=== PATIENT | female | born 1940 | race Caucasian/White ===

== ENCOUNTER 2017-04-27 19:45 | Inpatient (IN) ==
[2017-04-27 19:08] LABS: BASOPHILS % (AUTO) 0.2 % (0-1); EOSINOPHILS % (AUTO) 0.1 % (0-8); Hematocrit [HCT] 42.7 % (37.0-47.0); Hemoglobin [HGB] 14.6 g/dL (12.0-16.0); LYMPHOCYTES # (AUTO) 1.74 10*3/uL; MEAN CORPUSCULAR HEMOGLOBIN 32.4 PG (27-31); MEAN CORPUSCULAR HGB CONC 34.2 g/dL (33-37); MEAN CORPUSCULAR VOLUME 94.7 FL (81-99); MEAN PLATELET VOLUME 11.7 FL (7.4-12.2); MONOCYTES % (AUTO) 8.5 % (5-15); NEUTROPHILS # (AUTO) 20.92 10*3/UL; NEUTROPHILS % (AUTO) 83.7 % (50-80); RED BLOOD COUNT 4.51 10^6/uL (4.20-5.40)
[2017-04-27 19:09] LABS: BASOPHILS # (AUTO) 0.06 10*3/UL; EOSINOPHILS # (AUTO) 0.02 10*3/UL; MONOCYTES # (AUTO) 2.12 10*3/UL (0.3-0.8)
--- NOTE | 2017-04-27 19:13 | PDOC ---
GI Bleed/Rectal Complaint HPI - General Chief Complaint: Nausea / Vomiting / Diarrhea Stated Complaint: vomiting blood/bright red stools Date Seen by Provider: 04/27/17 Time Seen by Provider: 16:10 - History of Present Illness Initial Comments: Patient is a very nice 76-year-old woman who presents to the emergency department via EMS with complaint of copious amounts of rectal bleeding. She apparently has fairly dark appearing rectal blood she also has had a couple episodes of emesis earlier today. She is anticoagulated with Coumadin secondary to chronic atrial fibrillation. She states she is feeling a little bit lightheaded. When she was first found by EMS she was hypotensive with blood pressures down into the 70s and 80s. She was given some IV fluid bolus on the way to the emergency department is currently in the low 100 systolically. She states she has had GI bleed in the past she also has history of autoimmune hemolytic anemia her last INR was between 2 and 3 and this was just a week or 2 ago. She states that she has had colonoscopy last of which was about 2-3 years ago and she was told that it was benign and normal. - Patient Home Medications Home Medications: Home Medications Docusate Sodium [Colace] 1 cap PO BID 09/09/12 Nitrofurantoin Macrocrystal [Macrodantin] 100 mg PO DAILY 08/07/13 Lisinopril/Hydrochlorothiazide [Lisinopril-Hctz 10-12.5 mg Tab] 1 tab PO DAILY # 90 tab 12/17/14 Lubiprostone [Amitiza] 1 cap PO QD #90 cap 03/21/15 Omeprazole 1 cap PO BID #180 cap 03/21/15 Warfarin Sodium 1 tab PO DAILY #0 tab 04/11/15 Tamsulosin HCl [Flomax Cap] 1 cap PO QHS #30 cap 04/30/15 l Gasseri/B Bifidum/B Longum [FAMOCO Colon Health Capsule] 1 each PO QHS #30 cap 04/30/15 Flecainide Acetate 1 tab PO BID tab 07/15/15 - Patient Allergies Allergies/Adverse Reactions: Allergies Allergy/AdvReac Type Severity Reaction Status Date / Time levofloxacin [From Levaquin] Allergy Severe HIVES Verified 04/27/17 18:38 adhesive Allergy Intermediate blister Verified 04/27/17 18:38 Penicillins Allergy Intermediate RASH Verified 04/27/17 18:38 lidocaine Allergy Mild NOT Verified 04/27/17 18:38 APPLICABLE Past Medical History - heen HEENT History: Hard of Hearing Additional HEENT History: hearing aides Cardiovascular History: Hypertension Additional Cardiovasular History: history murmur, last visit physician unable to auscultate Respiratory History: Shortness of Breath, Snoring Gastrointestinal History: GERD, GI Bleed, Colostomy, Other (please comment) Additional Gastrointestinal History: Gastroparesis, splenectomy. dd Genitourinary History: Recurrent UTI, Incontinence Additional Genitourinary History: mostly in AM can't get to bathroom quick enough Endocrine History: Denies History Musculoskeletal History: Arthritis, Osteoporosis, Back Pain, Joint Pain, Osteoarthritis Prosthesis or Implant: Yes Neurological History: Migraines Additional Neurological History: gets aura, but seldom with the headache Blood Disorders: Anemia, Other (please comment) Additional Blood Disorders History: HAS AUTOIMMUNE HEMOLYTIC ANEMIA Psychiatric History: Denies History History of Sexually Transmitted Diseases: No Female Reproductive History: Hysterectomy Obstetrical History: Denies History Cancer History: Denies History In Past Year Been Physically Harmed or Verbally Threatened: No History of MDRO: No History of Other Communicable Diseases: No Tobacco Use: Never Smoker Alcohol Use: Occasionally Type of alcohol normally used: Wine How much alcohol do you normally drink a day?: 1 a week Substance Use Type: None Previous Surgical History: Yes Type / Date of Surgery: knee, hyst, lap carmen, spleenetomy Anesthesia Reactions: No (last surgery, difficulty awakening in [place]) Malignant Hyperthermia: No Family History of Malignant Hyperthermia: No Significant Family History: Cancer, Diabetes, Heart disease, Hypertension, Lung disease Past Medical History Reviewed: Reviewed - No Changes ROS - Limitations ROS Limitations: No Limitations Constitution: REPORTS: Denies Symptoms Cardiovascular: REPORTS: Denies Cardiac Symptoms Respiratory: REPORTS: Denies Resp Symptoms Neurological: REPORTS: Denies Neuro Symptoms GI Bleed / Rectal Complaint PE - General Appearance General Appearance: POSITIVE: Alert, Cooperative, No Acute Distress - HEENT HEENT: POSITIVE: Head Inspection Nml - Neck Neck: POSITIVE: Normal Inspection - Respiratory Respiratory: POSITIVE: No Respiratory Distress, Breath Sounds Normal - Cardiovascular Cardiovascular: POSITIVE: Heart Sounds Normal - Abdomen Additional Abdomen Details: She has a mild to moderate tenderness in her low abdomen bowel sounds are normal to hyperactive. - Genital / Rectal Rectal: POSITIVE: Other (There is gross blood noted multiple times from her rectum.) - Skin Skin: POSITIVE: Color Normal, No Rash - Neurological / Psychological Neurological: POSITIVE: Affect Apporpriate, Oriented X3 GI Bleed / Rectal Progress - Results Reviewed by me Xrays/CTs/US Reviewed by me: Yes Discussed with Radiologist: Yes Radiology Findings: Fluid in the esophagus otherwise nonacute findings of CT of abdomen and pelvis Lab Results Reviewed: Yes Lab Results:: Laboratory Results 04/27/17 04/27/17 Range/Units 19:04 19:30 WBC 24.98 H (4.8-10.8) 10^3/uL RBC 4.51 (4.20-5.40) 10^6/uL Hgb 14.6 (12.0-16.0) g/dL Hct 42.7 (37.0-47.0) % MCV 94.7 (81-99) FL MCH 32.4 H (27-31) PG MCHC 34.2 (33-37) g/dL RDW Std Deviation 51.4 H (39-50) fL RDW Coeff of Eder 15.2 H (11.5-14.5) % Plt Count 258 (140-350) 10*3/uL MPV 11.7 (7.4-12.2) FL Immature Gran % (Auto) 0.5 (0-5) % Neut % (Auto) 83.7 H (50-80) % Lymph % (Auto) 7.0 L (10-50) % [place] % (Auto) 8.5 (5-15) % Eos % (Auto) 0.1 (0-8) % Baso % (Auto) 0.2 (0-1) % Immature Gran # (Auto) 0.12 10*3/UL Neut # (Auto) 20.92 10*3/UL Lymph # (Auto) 1.74 10*3/uL [place] # (Auto) 2.12 H (0.3-0.8) 10*3/UL Eos # (Auto) 0.02 10*3/UL Baso # (Auto) 0.06 10*3/UL WBC Morphology Comment See comments (NORM) Plt Morphology Comment Normal morphology (NORM) RBC Morph Comment Normal morphology (NORM) PT 23.8 H (9.7-11.4) secs INR 2.23 (0.00-5.90) N/A Sodium 131 L (135-145) meq/L Potassium 4.4 (3.8-5.2) meq/L Chloride 98 (98-112) meq/L Carbon Dioxide 19 L (23-33) meq/L Anion Gap 14 (5-20) BUN 27 H (7-22) mg/dL Creatinine 1.4 H (0.50-1.20) mg/dL Estimated GFR [employer] BUN/Creatinine Ratio 19.28 (6-20) Glucose 170 H (78-110) mg/dL Calculated Osmolality 280.0 (267-292) mOsm/kg Calcium 10.1 (8.7-10.7) mg/dL Total Bilirubin 1.1 (0.3-1.2) mg/dL AST 33 (8-39) IU/L ALT 36 (9-52) IU/L Alkaline Phosphatase 234 H (38-126) IU/L Total Protein 7.7 (6.1-8.0) g/dL Albumin 4.4 (3.5-4.8) g/dL Globulin 3.3 (2.50-4.10) g/dL Albumin/Globulin Ratio 1.30 (1.3-2.0) mg/g Blood Type O POSITIVE Antibody Screen Negative - Patient's Progress MDM / ED Course: Patient was admitted to the emergency department and had a bloody stool she was here she was cleaned up from this area she had initial blood work done which showed a normal H&H and her blood pressure and heart rate were benign through her time here in the emergency department. She has been given some IV fluid and also a 5 mg dose of vitamin K given that she has GI bleed and is anticoagulated with an INR of greater than 2 at this time. She continued to have some low abdominal significant tenderness and pain and had an elevated white blood cell count to greater than [address] scan of her abdomen and pelvis were performed with IV contrast. This showed some fluid in her esophagus otherwise benign findings. She did have some emesis while she was in the emergency department this was all without any blood in it and was treated with Zofran and she did get some relief. She's had no infective sort of symptoms such as fever or chills and a urinalysis is currently pending. She has no respiratory symptoms currently so chest x-ray or further pulmonary workup was not performed at this time. Given that she has active GI bleed she is anticoagulated she has an elevated white blood cell count and some persistent abdominal pain and nausea and vomiting patient is admitted to the care of the hospitalist who agreed to accept the patient. I've also discussed patient with our general surgeon Dr. Llamas who agrees to see the patient in the morning and less she were to decompensate where he would be glad to see her this evening. Patient Care Time - Estimated PCT Patient Care Time (In Minutes): 45 Vital Signs - VS Reviewed Vital Signs Reviewed: Yes Discharge Clinical Impression: Nausea and vomiting GI bleed Qualifiers: GI bleed type/associated pathology: unspecified gastrointestinal hemorrhage type Qualifier Code: (K92.2) Gastrointestinal hemorrhage, unspecified Leukocytosis Qualifiers: Leukocytosis type: unspecified Qualifier Code: (D72.829) Elevated white blood cell count, unspecified Discharge Disposition: Admit to Inpatient Condition: Fair Follow Up With: LEO RAMIRES [Primary Care Provider] - Date Decision to Admit to Inpatient: 04/27/17 Time Decision to Admit to Inpatient: 22:18
[2017-04-27 19:14] LABS: BLOOD UREA NITROGEN 27 mg/dL (7-22)
[2017-04-27 19:15] LABS: BUN/CREATININE RATIO 19.28 (6-20); SERUM ALBUMIN 4.4 g/dL (3.5-4.8)
[~2017-04-27 19:45] MED LIST: NORMAL SALINE 10 ML SYRINGE FLUSH IVP PRN; ONDANSETRON 4 MG/2 ML VIAL IVP ONE; ONDANSETRON 4 MG/2 ML VIAL ONE; Sodium Chloride 0.9% 1,000 ML PRIMARY IV ONE
[2017-04-27 19:48] LABS: PLATELET MORPHOLOGY COMMENT NORMAL MORPHOLOGY (NORM); RBC MORPHOLOGY COMMENT NORMAL MORPHOLOGY (NORM); WBC MORPHOLOGY COMMENT SEE COMMENTS (NORM)
--- NOTE | 2017-04-27 21:41 | DI ---
CT ABDOMEN SCAN WITH IV CONTRAST, 04/27/2017 8:17 PM : Clinical History: Abdominal pain. Vomiting. Hematochezia. Previous Exam: None at this facility. Scans are performed from the lower lung bases through the liver and kidneys with IV contrast. 90 ml o f Isovue 300 was injected IV. No oral or rectal contrast was ordered. The lung bases are clear. Calcifications are present in the LAD and right coronary artery. The esopha beatriz is dilated and filled with fluid, and achalasia cannot entirely be excluded. There is a hiatal he rnia in the fundus of the stomach has herniated through the diaphragm. Small less than 10 mm low dens ity lesions are present in the right and left lobes of the liver most likely representing small benig n cysts. The patient is status post cholecystectomy. The patient is status post splenectomy. The adre nal glands and right kidney are normal. The left kidney has multiple cortical cysts, and the largest measures about 8 cm in diameter. There is no hydronephrosis or hydroureter. No renal or ureteral calc yoselyn are present. There are no abnormal retrocrural or periaortic nodes. No ascites is present. READIN. There is a hiatal hernia. The esophagus is dilated and filled with fluid. Achalasia cannot be exc luded. 2. Status post splenectomy. 3. The left kidney has numerous large cortical cyst but is otherwise normal. The right kidney is nor mal. CT PELVIS SCAN WITH IV CONTRAST, 04/27/2017 8:17 PM: Clinical History: See above. Previous Exam: None at this facility. Scans are performed from just superior to the umbilicus to the symphysis pubis with IV contrast. This is the same bolus of contrast used for the CT scans of the abdomen. Scans through the lower abdomen and pelvis show no masses or abnormal fluid collections. There is no adenopathy. The appendix is not visualized but there is no inflammatory mass either in the cecal tip or in the right lower quadrant. 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 The small bowel is unremark able except for one loop of jejunum in the left flank region that is mildly dilated. This can still b e within normal limits and is dilated because of active peristalsis. No periserosal inflammatory burciaga ges noted. The colon is virtually collapsed except for the ascending and proximal portion of the viera sverse colon. Colitis cannot be evaluated without distention of the colon. There is a large abdominal hernia located just above the umbilicus through which mesenteric fat and small bowel have herniated without evidence of obstruction. The patient is status post hysterectomy and bilateral salpingo-oopho rectomy. READIN. No definite periserosal inflammatory changes seen in either large or small bowel loops. Unfortuna tely, the colon is not distended so evaluation for colitis is not possible. 2. There is a ventral hernia above the umbilicus through which small bowel and mesenteric fat has he rniated but there is no evidence of obstruction.
[2017-04-27] MEDS ORDERED: PHYTONADIONE 10 MG/1 ML AMPULE PO ONE (21:48)
[2017-04-27] MEDS ORDERED: Pantoprazole Inj 40 MG in Normal Saline Flush 10 ML IVP ONE (21:49)
[2017-04-27] MEDS ORDERED: ONDANSETRON 4 MG/2 ML VIAL IVP ONE (22:00)
--- NOTE | 2017-04-27 22:52 | PDOC ---
History and Physical - History of Present Illness Date and Time of Service: 04/27/2017 11:50 PM Chief Complaint: Vomiting, cramping abdominal pain and blood per rectum History of Present Illness: This is a 76 years old female with medical history significant for history of hypertension, history of paroxysmal atrial fibrillation, and history of autoimmune anemia status post splenectomy who came into the hospital with history of vomiting and lower abdominal cramps that started this evening. She was at the space technologist office to test her hearing and she started to feel cramping and she vomited and she went back home and then she started to have rectal bleeding which was fresh blood according to her and because of that she came into the ER. She said she vomited multiple times maybe like 4-5 times. There was no melena and was more fresh blood she said this is second time this thing happened she had it first on March 29 she said she went to her physician office after visiting the urgent clinic in [place] they tested her blood and she apparently did not need blood transfusion and they thought maybe this is secondary to hemorrhoid. In the ER she was given fluids, vitamin K and anti-emetics and she was admitted. The pain that she describes is more lcramping in the lower abdomen last for a few minutes and then the vomiting would happen. She said though this is second time she had the bleeding but the vomiting and the cramping being going on for several years. it happen like twice a month but this is the worst time. She denied chest pain no palpitation no shortness of breath. She did feel lightheaded and dizzy that she was going to pass out but she did not pass out. There is no fever and no chills. Past Medical History Medical History: 1. Hypertension. 2. History of autoimmune hemolytic anemia status post splenectomy currently in remission. 3. History of gastric erosions. 4. Paroxysmal A. fib. 5. History of gastroparesis apparently she was on Reglan at one point in time for a year. 6. Chronic UTIs on suppressive antibiotic treatment. 7. History of GERD Surgical History: 1. History of splenectomy. 2. History of hysterectomy. 3. History of appendectomy. 4. History of cholecystectomy. 5. History of bilateral oophorectomy. 6. Right and left knee replacement Pertinent Family History: Father had lung cancer, mother had coronary artery disease Past Social History: Doesn't smoke, occasionally drink nor drugs. 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 She is visiting and planning to go back home mid-May. Tobacco Use: Never Smoker Substance Use Type: None Alcohol Use: Occasionally Medication / Allergies Home Medications: Home Medications Medication Instructions Recorded Confirmed Type Docusate Sodium [Colace] 1 cap PO BID 09/09/12 04/27/17 History Nitrofurantoin Macrocrystal 100 mg PO DAILY 08/07/13 04/27/17 History [Macrodantin] Lisinopril/Hydrochlorothiazide 1 tab PO DAILY #90 tab 12/17/14 04/27/17 Clinic [Lisinopril-Hctz 10-12.5 mg Tab] Lubiprostone [Amitiza] 1 cap PO QD #90 cap 03/21/15 04/27/17 Clinic Omeprazole 1 cap PO BID #180 cap 03/21/15 04/27/17 Clinic Warfarin Sodium 1 tab PO DAILY #0 tab 04/11/15 04/27/17 History Tamsulosin HCl [Flomax Cap] 1 cap PO QHS #30 cap 04/30/15 04/27/17 History l Gasseri/B Bifidum/B Longum 1 each PO QHS #30 cap 04/30/15 04/27/17 History [[place] Water Capsule] Allergies/Adverse Reactions: Allergies Allergy/AdvReac Type Severity Reaction Status Date / Time levofloxacin [From Levaquin] Allergy Severe HIVES Verified 04/28/17 01:20 adhesive Allergy Intermediate blister Verified 04/28/17 01:20 Penicillins Allergy Intermediate RASH Verified 04/28/17 01:20 lidocaine Allergy Mild NOT Verified 04/28/17 01:20 APPLICABLE Review of Systems - Review of Systems All Systems: Reviewed & No Additional Complaints Except as Stated Exam - General General Appearance: POSITIVE: Obese Additional General Exam Details: She did vomit during the interview. - Head Head Exam: POSITIVE: Normal Inspection - Eye Eye Exam: POSITIVE: Normal Appearance - ENT ENT Exam: POSITIVE: Normal Exam - Neck Neck Exam: POSITIVE: Normal Inspection - Respiratory Respiratory Exam: POSITIVE: Clear to Auscultation - Bilaterally - Cardiovascular Cardiovascular Exam: POSITIVE: RRR - GI/Abdominal GI/Abdominal Exam: POSITIVE: Normal Bowel Sounds, Non Distended, Soft Additional GI/Abdominal Exam Details: Scar of previous operation noted. Some minimal tenderness in left lower quadrant noted - Rectal Rectal Exam: POSITIVE: Deferred - External Exam: POSITIVE: Deferred Exam: POSITIVE: Deferred - Extremities Extremities Exam: POSITIVE: Normal Inspection - Back Back Exam: POSITIVE: Normal Inspection Results - Labs CBC and BMP: 04/28/17 04:15 04/28/17 04:15 - Imaging Status: Report Reviewed by Me (CT abdomen and pelvis there is a hiatal hernia, the esophagus is dilated and filled with fluid. The [place] cannot be excluded. Status post colectomy, the left kidney has numerous large cortical cyst. There is ventral hernia above the umbilicus through which small bowel and mesenteric fat has herniated but there is no evidence of obstruction) Assessment and Plan - Patient Problems (1) GI bleed Current Visit: Yes Status: Acute Comment: Probably lower, she did say that she had colonoscopy done by Dr. Dahl and she thinks it was normal. That was maybe 3 years ago. Will provide supportive care with fluid treat her symptomatically. We'll repeat her Hemoglobin give her blood transfusion if necessary. They are already gave vitamin K will repeat INR tomorrow. Qualifiers: GI bleed type/associated pathology: unspecified gastrointestinal hemorrhage type Qualifier Code(s): (K92.2) Gastrointestinal hemorrhage, unspecified (2) Paroxysmal a-fib Current Visit: Yes Status: Acute Comment: Continue previous medications except we'll hold the Coumadin now (3) Hypertension Current Visit: No Status: Acute Comment: We'll hold her blood pressure medication for now (4) Nausea and vomiting Current Visit: Yes Status: Acute Comment: She is describing recurrent nausea and vomiting for years she gave a history of gastroparesis so this may be secondary to that. She refused to take the Reglan. We'll treat her symptomatically. Will be seen by Dr. Llamas and see whether he would consider scope. (5) Leukocytosis Current Visit: Yes Status: Acute Comment: Probably stress-related will repeat tomorrow. Qualifiers: Leukocytosis type: unspecified Qualifier Code(s): (D72.829) Elevated white blood cell count, unspecified
[2017-04-27] MEDS ORDERED: Metoclopramide Inj 10 MG/2 ML VIAL IVP ONE (23:13)
[2017-04-27] MEDS ORDERED: Metoclopramide Inj 10 MG/2 ML VIAL ONE (23:23)
[2017-04-27] MEDS ORDERED: Prochlorperazine Edisylate Inj 10mg/2ml vial IVP PRN (23:33)
[2017-04-27] MEDS ORDERED: ONDANSETRON 4 MG/2 ML VIAL IVP PRN (23:33)
[2017-04-28] MEDS ORDERED: MORPHINE SULFATE 2 MG/1 ML IVP PRN (00:04)
[2017-04-28 00:06] LABS: Hematocrit [HCT] 38.4 % (37.0-47.0); Hemoglobin [HGB] 13.1 g/dL (12.0-16.0)
[2017-04-28] MEDS: Sodium Chloride 0.9% 1,000 ML PRIMARY IV SCH ×4 (01:19→21:37)
[2017-04-28] MEDS ORDERED: methylPREDNISolone 125 MG/2 ML VIAL IVP ONE ×3 (03:00→14:46)
[2017-04-28 04:46] LABS: BASOPHILS # (AUTO) 0.04 10*3/UL; BASOPHILS % (AUTO) 0.2 % (0-1); EOSINOPHILS # (AUTO) 0 10*3/UL; EOSINOPHILS % (AUTO) 0 % (0-8); Hematocrit [HCT] 38.8 % (37.0-47.0); Hemoglobin [HGB] 13.2 g/dL (12.0-16.0); LYMPHOCYTES # (AUTO) 1.84 10*3/uL; MEAN CORPUSCULAR VOLUME 94.2 FL (81-99); MEAN PLATELET VOLUME 11.1 FL (7.4-12.2); MONOCYTES # (AUTO) 1.45 10*3/UL (0.3-0.8); MONOCYTES % (AUTO) 6.5 % (5-15); NEUTROPHILS # (AUTO) 19.08 10*3/UL; NEUTROPHILS % (AUTO) 84.9 % (50-80); RED BLOOD COUNT 4.12 10^6/uL (4.20-5.40)
[2017-04-28 04:53] LABS: BUN/CREATININE RATIO 24.54 (6-20); SERUM ALBUMIN 3.8 g/dL (3.5-4.8)
[2017-04-28 04:58] LABS: PLATELET MORPHOLOGY COMMENT NORMAL MORPHOLOGY (NORM); RBC MORPHOLOGY COMMENT NORMAL MORPHOLOGY (NORM); WBC MORPHOLOGY COMMENT NORMAL MORPHOLOGY (NORM)
--- NOTE | 2017-04-28 08:07 | PDOC(PROG) ---
Date and Time of Service: 04/28/2017 8:04 AM Interval History: Subjective She feel tired, the lower abdominal pain seemed to be less now compared to last night. She did have a bloody stool earlier today. Last time she vomited was last night. Objective : Data - Labs CBC and BMP: 04/28/17 04:15 04/28/17 04:15 Labs - Last 24 Hours: Laboratory Results 04/27/17 04/28/17 Range/Units 23:52 04:15 WBC 22.45 H (4.8-10.8) 10^3/uL RBC 4.12 L (4.20-5.40) 10^6/uL Hgb 13.1 13.2 (12.0-16.0) g/dL Hct 38.4 38.8 (37.0-47.0) % MCV 94.2 (81-99) FL MCH 32.0 H (27-31) PG MCHC 34.0 (33-37) g/dL RDW Std Deviation 50.8 H (39-50) fL RDW Coeff of Eder 15.0 H (11.5-14.5) % Plt Count 248 (140-350) 10*3/uL MPV 11.1 (7.4-12.2) FL Immature Gran % (Auto) 0.2 (0-5) % Neut % (Auto) 84.9 H (50-80) % Lymph % (Auto) 8.2 L (10-50) % [place] % (Auto) 6.5 (5-15) % Eos % (Auto) 0 (0-8) % Baso % (Auto) 0.2 (0-1) % Immature Gran # (Auto) 0.04 10*3/UL Neut # (Auto) 19.08 10*3/UL Lymph # (Auto) 1.84 10*3/uL [place] # (Auto) 1.45 H (0.3-0.8) 10*3/UL Eos # (Auto) 0 10*3/UL Baso # (Auto) 0.04 10*3/UL WBC Morphology Comment Normal morphology (NORM) Plt Morphology Comment Normal morphology (NORM) RBC Morph Comment Normal morphology (NORM) PT 15.5 H (9.7-11.4) secs INR 1.46 (0.00-5.90) N/A Sodium 135 (135-145) meq/L Potassium 4.3 (3.8-5.2) meq/L Chloride 103 (98-112) meq/L Carbon Dioxide 21 L (23-33) meq/L Anion Gap 11 (5-20) BUN 27 H (7-22) mg/dL Creatinine 1.1 (0.50-1.20) mg/dL Estimated GFR (>60 ml/min/1.73m(2)) BUN/Creatinine Ratio 24.54 H (6-20) Glucose 138 H (78-110) mg/dL Calculated Osmolality 286.0 (267-292) mOsm/kg Calcium 8.8 (8.7-10.7) mg/dL Total Bilirubin 1.0 (0.3-1.2) mg/dL AST 27 (8-39) IU/L ALT 31 (9-52) IU/L Alkaline Phosphatase 174 H (38-126) IU/L Total Protein 6.6 (6.1-8.0) g/dL Albumin 3.8 (3.5-4.8) g/dL Globulin 2.9 (2.50-4.10) g/dL Albumin/Globulin Ratio 1.30 (1.3-2.0) mg/g Objective : Exam - General General Appearance: No Acute Distress, Cooperative, Obese - Head Head Exam: Normal Inspection - Eye Eye Exam: Normal Appearance - ENT ENT Exam: Normal Exam - Neck Neck Exam: Normal Inspection - Respiratory Respiratory Exam: Clear to Auscultation - Bilaterally - Cardiovascular Cardiovascular Exam: RRR - GI/Abdominal GI/Abdominal Exam: Normal Bowel Sounds, Non Tender, Non Distended, Soft - Rectal Rectal Exam: Deferred - External Exam: Deferred - Extremities Extremities Exam: Normal Inspection - Back Back Exam: Normal Inspection - Neurological Neurological Exam: Alert, Oriented x 3, CN II-XII Intact, No Facial Droop, Moves All Extremities Equally - Psychiatric Psychiatric Exam: Normal Affect - Integumentary Integumentary Exam: Normal Color Assessment and Plan - Patient Problems (1) GI bleed Current Visit: Yes Status: Acute Comment: Hemoglobin did not drop much will repaet again at noon. She will be seen by Dr. Llamas and will see his recommendations. Will send stool for culture and C. difficile. Continue IV fluid. If no scopes today then will start her on clear liquid. Qualifiers: GI bleed type/associated pathology: unspecified gastrointestinal hemorrhage type Qualifier Code(s): (K92.2) Gastrointestinal hemorrhage, unspecified (2) Paroxysmal a-fib Current Visit: Yes Status: Acute Comment: Continue holding the Coumadin. Continue propafenone. (3) Hypertension Current Visit: No Status: Acute Comment: Continue holding the blood pressure medication (4) Nausea and vomiting Current Visit: Yes Status: Acute Comment: We'll treat symptomatically. There is dilatation of the esophagus on the CT so she may need to have an upper scope. (5) Leukocytosis Current Visit: Yes Status: Acute Comment: White count is coming down, still elevated I think we'll culture her although seems more related stress. Qualifiers: Leukocytosis type: unspecified Qualifier Code(s): (D72.829) Elevated white blood cell count, unspecified
[2017-04-28] MEDS: PROPAFENONE 150 MG TABLET PO SCH ×2 (08:40→21:30)
[2017-04-28] MEDS: CEPHALEXIN 500 MG CAPSULE PO SCH ×2 (08:40→21:30)
[2017-04-28] MEDS ORDERED: PROPAFENONE HCL 225 MG PO SCH (09:00)
[2017-04-28] MEDS ORDERED: Fleet Enema 133ml RECTAL SCH (09:00)
[2017-04-28] MEDS ORDERED: Pantoprazole Inj 40 MG in Normal Saline Flush 10 ML IVP SCH (09:00)
[2017-04-28] MEDS: Fleet Enema 133ml RECTAL SCH ×2 (09:17→10:20)
[2017-04-28 09:23] LABS: BILIRUBIN,URINE NEGATIVE (NEG); CLARITY,URINE CLEAR (CLEAR); COLOR,URINE YELLOW; GLUCOSE, URINE (UA) NEGATIVE (NEG); NITRATE,URINE NEGATIVE (NEG); OCCULT BLOOD,URINE MODERATE (NEG); PROTEIN,URINE NEGATIVE (NEG); UROBILINOGEN,URINE 0.2 EU/dL (0.2)
[2017-04-28 09:46] LABS: RBC,URINE 15-20 /hpf; SQUAMOUS EPITHELIAL CELL,UR FEW; URINE SAMPLE TYPE CLEAN CATCH URINE
--- NOTE | 2017-04-28 10:36 | CONSULT ---
Consult Note - Consult Consult Date: 04/28/17 Reason for Consult: PreOp Consulation : General Surgery Requesting Physician: Dr. Moura Primary Care Provider: Nish Alas MD - History of Present Illness History of Present Illness: Patient is a 76-year-old female who reports she felt well until yesterday afternoon. After eating lunch she developed some abdominal cramps with nausea and vomiting. She has a history of abdominal cramps with nausea and vomiting and diarrhea. This time however things were different. The cramps persisted and she started having bloody bowel movements. She was brought to the hospital by ambulance about 6:30 PM. She had no more stools in the ER but did have one last night and 1 this morning. These were bright red to maroon bloody liquid stools. She denies anal pain. She denies obvious protuberant hemorrhoids. She does have a history of reflux and an upper GI bleed. She is on omeprazole. She has not been having dyspepsia or increased reflux. She denies NSAID use. Patient reports she had some bloody stools about a month ago. She was seen in the open access clinic but the bleeding had stopped and nothing was done. Patient is on chronic Coumadin therapy for atrial fibrillation. Patient had multiple upper endoscopies in 2015 by her report. She also had a colonoscopy at that time. She doesn't think there was any significant abnormalities on the colonoscopy. She had repeat upper endoscopies for bleeding. She thinks that was from the biopsies but she is not sure. She has chronic GERD. Yesterday she had emesis in the emergency room that was Hemoccult negative without gross bleeding. I am asked to see her for ongoing GI bleeding. Her INR has decreased from the 2 + to 1.4 this morning. She did get 5 mg of IV vitamin K in the emergency room. Again she had another liquid bloody bowel movement this morning. Review of Systems - Gastrointestinal Gastrointestinal / Abdominal: REPORTS: Nausea, Vomiting, Abdominal Pain (Cramps) , Bloody Stool, Heartburn (History of), Bright Red Blood Per Rectum, See HPI Past Medical History Medical History: 1. Hypertension. 2. History of autoimmune hemolytic anemia status post splenectomy currently in remission. 3. History of gastric erosions. 4. Paroxysmal A. fib. 5. History of gastroparesis apparently she was on Reglan at one point in time for a year. 6. Chronic UTIs on suppressive antibiotic treatment. 7. History of GERD Surgical History: 1. History of splenectomy. 2. History of hysterectomy. 3. History of appendectomy. 4. History of cholecystectomy. 5. History of bilateral oophorectomy. 6. Right and left knee replacement. 7. Exploratory laparotomy for small bowel obstruction. 8. Exploratory laparotomy for perforated intestine. 9. Anterior and posterior repair Pertinent Family History: Father had lung cancer, mother had coronary artery disease Past Social History: Doesn't smoke, occasionally drink nor drugs. 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 She is visiting and planning to go back home mid-May. Tobacco Use: Never Smoker Substance Use Type: None Alcohol Use: Occasionally Medication / Allergies Home Medications: Home Medications Medication Instructions Recorded Confirmed Type Docusate Sodium [Colace] 1 cap PO BID 09/09/12 04/27/17 History Nitrofurantoin Macrocrystal 100 mg PO DAILY 08/07/13 04/27/17 History [Macrodantin] Lisinopril/Hydrochlorothiazide 1 tab PO DAILY #90 tab 12/17/14 04/27/17 Clinic [Lisinopril-Hctz 10-12.5 mg Tab] Lubiprostone [Amitiza] 1 cap PO QD #90 cap 03/21/15 04/27/17 Clinic Omeprazole 1 cap PO BID #180 cap 03/21/15 04/27/17 Clinic Warfarin Sodium 1 tab PO DAILY #0 tab 04/11/15 04/27/17 History Tamsulosin HCl [Flomax Cap] 1 cap PO QHS #30 cap 04/30/15 04/27/17 History l Gasseri/B Bifidum/B Longum 1 each PO QHS #30 cap 04/30/15 04/27/17 History [[employer] Capsule] Cholecalciferol (Vitamin D3) 1 cap PO DAILY 04/28/17 04/28/17 History [Vitamin D3] Propafenone HCl 225 mg PO BID 04/28/17 04/28/17 History Tamsulosin HCl [Flomax] 0.4 mg PO BEDTIME 04/28/17 04/28/17 History Allergies/Adverse Reactions: Allergies Allergy/AdvReac Type Severity Reaction Status Date / Time levofloxacin [From Levaquin] Allergy Severe HIVES Verified 04/28/17 01:20 adhesive Allergy Intermediate blister Verified 04/28/17 01:20 Penicillins Allergy Intermediate RASH Verified 04/28/17 01:20 lidocaine Allergy Mild NOT Verified 04/28/17 01:20 APPLICABLE Exam - Vitals Vital Signs: Vital Signs Temperature 98 F Temperature Source Temporal Artery Scan Pulse Rate [Apical] 78 Pulse Rate 73 Respiratory Rate 18 Blood Pressure [Right Arm] 116/54 Blood Pressure 125/63 Pulse Ox 96 Oxygen Flow Rate 0.5 Oxygen Delivery Method Nasal Cannula Height 5 ft 3 in Weight 101.06 kg - General General Appearance: POSITIVE: No Acute Distress, Cooperative - Respiratory Respiratory Exam: POSITIVE: Clear to Auscultation - Bilaterally, Breathing Non Labored - Cardiovascular Cardiovascular Exam: POSITIVE: RRR, No Murmur - GI/Abdominal GI/Abdominal Exam: POSITIVE: Normal Bowel Sounds, Non Distended, Soft Additional GI/Abdominal Exam Details: Diffuse nonfocal abdominal tenderness. Patient reports it is her baseline. - Rectal Rectal Exam: POSITIVE: Deferred (Pending colonoscopy.) - Neurological Neurological Exam: POSITIVE: Alert, Oriented x 3 - Psychiatric Psychiatric Exam: POSITIVE: Normal Affect, Normal Mood Results - Labs CBC and BMP: 04/28/17 04:15 04/28/17 04:15 Labs - Last 24 Hours: Laboratory Results 04/27/17 04/28/17 Range/Units 23:52 04:15 WBC 22.45 H (4.8-10.8) 10^3/uL RBC 4.12 L (4.20-5.40) 10^6/uL Hgb 13.1 13.2 (12.0-16.0) g/dL Hct 38.4 38.8 (37.0-47.0) % MCV 94.2 (81-99) FL MCH 32.0 H (27-31) PG MCHC 34.0 (33-37) g/dL RDW Std Deviation 50.8 H (39-50) fL RDW Coeff of Eder 15.0 H (11.5-14.5) % Plt Count 248 (140-350) 10*3/uL MPV 11.1 (7.4-12.2) FL Immature Gran % (Auto) 0.2 (0-5) % Neut % (Auto) 84.9 H (50-80) % Lymph % (Auto) 8.2 L (10-50) % [place] % (Auto) 6.5 (5-15) % Eos % (Auto) 0 (0-8) % Baso % (Auto) 0.2 (0-1) % Immature Gran # (Auto) 0.04 10*3/UL Neut # (Auto) 19.08 10*3/UL Lymph # (Auto) 1.84 10*3/uL [place] # (Auto) 1.45 H (0.3-0.8) 10*3/UL Eos # (Auto) 0 10*3/UL Baso # (Auto) 0.04 10*3/UL WBC Morphology Comment Normal morphology (NORM) Plt Morphology Comment Normal morphology (NORM) RBC Morph Comment Normal morphology (NORM) PT 15.5 H (9.7-11.4) secs INR 1.46 (0.00-5.90) N/A Sodium 135 (135-145) meq/L Potassium 4.3 (3.8-5.2) meq/L Chloride 103 (98-112) meq/L Carbon Dioxide 21 L (23-33) meq/L Anion Gap 11 (5-20) BUN 27 H (7-22) mg/dL Creatinine 1.1 (0.50-1.20) mg/dL Estimated GFR (>60 ml/min/1.73m(2)) BUN/Creatinine Ratio 24.54 H (6-20) Glucose 138 H (78-110) mg/dL Calculated Osmolality 286.0 (267-292) mOsm/kg Calcium 8.8 (8.7-10.7) mg/dL Total Bilirubin 1.0 (0.3-1.2) mg/dL AST 27 (8-39) IU/L ALT 31 (9-52) IU/L Alkaline Phosphatase 174 H (38-126) IU/L Total Protein 6.6 (6.1-8.0) g/dL Albumin 3.8 (3.5-4.8) g/dL Globulin 2.9 (2.50-4.10) g/dL Albumin/Globulin Ratio 1.30 (1.3-2.0) mg/g Assessment and Plan - Patient Problems (1) GI bleed Current Visit: Yes Status: Acute Priority: High Diagnosis Date: 08/23/17 Comment: Etiology unclear but this sounds lower. Hemoccult negative emesis. Multiple bloody bowel movements. Chronic anticoagulation therapy. Patient will get 2 enemas this morning and we will proceed with upper and lower endoscopy. Possible local treatment of hemorrhoids has been discussed.The procedure has been discussed with the patient in complete yet simple terms including benefits, risks, and alternatives. All questions have been answered. Informed consent has been obtained. Qualifiers: GI bleed type/associated pathology: unspecified gastrointestinal hemorrhage type Qualifier Code(s): (K92.2) Gastrointestinal hemorrhage, unspecified
[2017-04-28] MEDS ORDERED: NORMAL SALINE 10 ML SYRINGE FLUSH IVP PRN (10:42)
[2017-04-28] MEDS ORDERED: Lactated Ringers 1,000 ML PRIMARY IV SCH (10:45)
[2017-04-28 12:07] LABS: Hematocrit [HCT] 35.3 % (37.0-47.0); Hemoglobin [HGB] 12.2 g/dL (12.0-16.0)
[2017-04-28] MEDS ORDERED: ePHEDrine Inj 50 MG/ML AMP ONE (12:34)
[2017-04-28] MEDS ORDERED: GLYCOPYRROLATE 0.2 MG/1 ML VIAL ONE (12:35)
--- NOTE | 2017-04-28 13:22 | GEN.OPNOTE ---
EGD / Colonoscopy Report Surgery Date: 04/28/17 Preoperative Diagnosis: GI bleeding, presumed lower. Postoperative Diagnosis: Normal upper endoscopy. Severe colitis. Procedure: #1 esophagogastroduodenoscopy with biopsy. #2 complete colonoscopy with multiple random biopsies. Surgeon: Lj Llamas MD Anesthesia Provider: Pamela Kaur CRNA Anesthesia Type: MAC Indications: Multiple bloody bowel movements. Chronic anticoagulation. EGD Findings: Esophagus: [Normal] GE Junction : [Small hiatal hernia] Fundus : [Normal] Body : [Normal] Prepyloric : [Normal] Small Intestine : [Normal] A lubricated flexible upper endoscope was inserted and passed through the esophagus and stomach into the duodenum. There was no blood in the duodenum, duodenal bulb, or the entire stomach. No gross abnormalities were found. The scope was withdrawn completing that portion of the procedure. Colonoscopy Findings: Prep : [Adequate] Cecum : [Visually normal with a small amount of old blood and retained stool] Ascending : [Severe colitis] Transverse : [Severe colitis] Sigmoid : [Severe colitis] Rectum : [Appeared to be rectal sparing] Digital Rectal Exam : [No significant hemorrhoid] A lubricated flexible colonoscope was inserted and passed to the blind end of the cecum. Air was aspirated as the scope was withdrawn. The cecum and rectum appeared to be normal. The ascending colon, transverse colon, descending colon , and sigmoid colon all showed a severe colitis. Multiple biopsies were taken from the cecum/right colon, transverse colon, sigmoid colon, and rectum. The scope was withdrawn completing the procedure. Patient tolerated the procedure well without complication. She was taken to the medical surgery in stable condition. I discussed the findings with the patient and Dr. Moura. We'll check a C. difficile to make sure this is not infectious and then treat appropriately. I recommended he discuss the case with molecular technologist probably steroids would be best to initially, as long as this is not infectious.
[2017-04-28] MEDS ORDERED: LIDOCAINE W/ SODIUM BICARB 0.5 ML SYR ONE (15:06)
[2017-04-28] MEDS: metroNIDAZOLE 500mg (Premix) 500 MG in Premix 1 BAG IV SCH ×2 (15:30→23:05)
--- NOTE | 2017-04-28 20:06 | PDOC(PROG) ---
General Note Progress Note: I discussed the findings at endoscopy with the patient. It appears she has chronic ulcerative colitis. She will follow up with my office next week. She plans to return home in the next 2 weeks. Records will be sent with her. Patient Problems - Patient Problem List (1) GI bleed Current Visit: Yes Status: Acute Diagnosis Date: 04/27/17 Priority: High Comment: Appears have chronic ulcerative colitis. C. difficile negative. Patient had a dose of steroids. Qualifiers: GI bleed type/associated pathology: unspecified gastrointestinal hemorrhage type Qualifier Code(s): (K92.2) Gastrointestinal hemorrhage, unspecified
[2017-04-29] MEDS ORDERED: methylPREDNISolone 125 MG/2 ML VIAL IVP ONE (03:00)
[2017-04-29 04:40] LABS: BASOPHILS # (AUTO) 0.03 10*3/UL; BASOPHILS % (AUTO) 0.1 % (0-1); EOSINOPHILS # (AUTO) 0 10*3/UL; EOSINOPHILS % (AUTO) 0 % (0-8); Hematocrit [HCT] 32.4 % (37.0-47.0); Hemoglobin [HGB] 11.2 g/dL (12.0-16.0); LYMPHOCYTES # (AUTO) 1.72 10*3/uL; MEAN CORPUSCULAR HEMOGLOBIN 32.7 PG (27-31); MEAN CORPUSCULAR HGB CONC 34.6 g/dL (33-37); MEAN CORPUSCULAR VOLUME 94.7 FL (81-99); MEAN PLATELET VOLUME 10.9 FL (7.4-12.2); MONOCYTES # (AUTO) 1.18 10*3/UL (0.3-0.8); MONOCYTES % (AUTO) 4.7 % (5-15); NEUTROPHILS # (AUTO) 21.99 10*3/UL; RED BLOOD COUNT 3.42 10^6/uL (4.20-5.40)
[2017-04-29 04:47] LABS: PLATELET MORPHOLOGY COMMENT NORMAL MORPHOLOGY (NORM); RBC MORPHOLOGY COMMENT NORMAL MORPHOLOGY (NORM); WBC MORPHOLOGY COMMENT NORMAL MORPHOLOGY (NORM)
[2017-04-29 04:50] LABS: BUN/CREATININE RATIO 17.14 (6-20); SERUM ALBUMIN 2.9 g/dL (3.5-4.8)
[2017-04-29] MEDS: metroNIDAZOLE 500mg (Premix) 500 MG in Premix 1 BAG IV SCH ×3 (06:49→23:26)
[2017-04-29] MEDS: Sodium Chloride 0.9% 1,000 ML PRIMARY IV SCH (06:50)
[2017-04-29] MEDS ORDERED: CALCIUM CARBONATE 500 MG (TUMS) CHEWABLE TABLET PO PRN (07:26)
--- NOTE | 2017-04-29 07:34 | PDOC(PROG) ---
Date and Time of Service: 04/29/2017 7:29 AM Interval History: Subjective Patient feels that she said 90% to 100% better. Bleeding is much less. The vomiting stopped, the cramps also much improved. Objective : Data - Labs CBC and BMP: 04/29/17 04:33 04/29/17 04:33 Labs - Last 24 Hours: Laboratory Results 04/28/17 04/28/17 04/28/17 Range/Units 09:16 12:00 12:04 WBC (4.8-10.8) 10^3/uL RBC (4.20-5.40) 10^6/uL Hgb 12.2 (12.0-16.0) g/dL Hct 35.3 L (37.0-47.0) % MCV (81-99) FL MCH (27-31) PG MCHC (33-37) g/dL RDW Std Deviation (39-50) fL RDW Coeff of Eder (11.5-14.5) % Plt Count (140-350) 10*3/uL MPV (7.4-12.2) FL Immature Gran % (Auto) (0-5) % Neut % (Auto) (50-80) % Lymph % (Auto) (10-50) % [place] % (Auto) (5-15) % Eos % (Auto) (0-8) % Baso % (Auto) (0-1) % Immature Gran # (Auto) 10*3/UL Neut # (Auto) 10*3/UL Lymph # (Auto) 10*3/uL [place] # (Auto) (0.3-0.8) 10*3/UL Eos # (Auto) 10*3/UL Baso # (Auto) 10*3/UL WBC Morphology Comment (NORM) Plt Morphology Comment (NORM) RBC Morph Comment (NORM) ESR (0-20) MM/HR Sodium (135-145) meq/L Potassium (3.8-5.2) meq/L Chloride (98-112) meq/L Carbon Dioxide (23-33) meq/L Anion Gap (5-20) BUN (7-22) mg/dL Creatinine (0.50-1.20) mg/dL Estimated GFR (>60 ml/min/1.73m(2)) BUN/Creatinine Ratio (6-20) Glucose (78-110) mg/dL Calculated Osmolality (267-292) mOsm/kg Lactic Acid 0.8 (0.70-2.10) MMOL/L Calcium (8.7-10.7) mg/dL Total Bilirubin (0.3-1.2) mg/dL AST (8-39) IU/L ALT (9-52) IU/L Alkaline Phosphatase (38-126) IU/L Total Protein (6.1-8.0) g/dL Albumin (3.5-4.8) g/dL Globulin (2.50-4.10) g/dL Albumin/Globulin Ratio (1.3-2.0) mg/g Stool Occult Blood Positive (NEGATIVE) 04/29/17 Range/Units 04:33 WBC 24.99 H (4.8-10.8) 10^3/uL RBC 3.42 L (4.20-5.40) 10^6/uL Hgb 11.2 L (12.0-16.0) g/dL Hct 32.4 L (37.0-47.0) % MCV 94.7 (81-99) FL MCH 32.7 H (27-31) PG MCHC 34.6 (33-37) g/dL RDW Std Deviation 49.8 (39-50) fL RDW Coeff of Eder 15.0 H (11.5-14.5) % Plt Count 208 (140-350) 10*3/uL MPV 10.9 (7.4-12.2) FL Immature Gran % (Auto) 0.3 (0-5) % Neut % (Auto) 88.0 H (50-80) % Lymph % (Auto) 6.9 L (10-50) % [place] % (Auto) 4.7 L (5-15) % Eos % (Auto) 0 (0-8) % Baso % (Auto) 0.1 (0-1) % Immature Gran # (Auto) 0.07 10*3/UL Neut # (Auto) 21.99 10*3/UL Lymph # (Auto) 1.72 10*3/uL [place] # (Auto) 1.18 H (0.3-0.8) 10*3/UL Eos # (Auto) 0 10*3/UL Baso # (Auto) 0.03 10*3/UL WBC Morphology Comment Normal morphology (NORM) Plt Morphology Comment Normal morphology (NORM) RBC Morph Comment Normal morphology (NORM) ESR 15 (0-20) MM/HR Sodium 133 L (135-145) meq/L Potassium 4.0 (3.8-5.2) meq/L Chloride 103 (98-112) meq/L Carbon Dioxide 24 (23-33) meq/L Anion Gap 6 (5-20) BUN 12 (7-22) mg/dL Creatinine 0.7 (0.50-1.20) mg/dL Estimated GFR (>60 ml/min/1.73m(2)) BUN/Creatinine Ratio 17.14 (6-20) Glucose 123 H (78-110) mg/dL Calculated Osmolality 276.0 (267-292) mOsm/kg Lactic Acid (0.70-2.10) MMOL/L Calcium 8.2 L (8.7-10.7) mg/dL Total Bilirubin 1.0 (0.3-1.2) mg/dL AST 18 (8-39) IU/L ALT 30 (9-52) IU/L Alkaline Phosphatase 92 (38-126) IU/L Total Protein 5.5 L (6.1-8.0) g/dL Albumin 2.9 L (3.5-4.8) g/dL Globulin 2.6 (2.50-4.10) g/dL Albumin/Globulin Ratio 1.10 L (1.3-2.0) mg/g Stool Occult Blood (NEGATIVE) Objective : Exam - General General Appearance: No Acute Distress, Cooperative, Obese - Head Head Exam: Normal Inspection, Atraumatic - Eye Eye Exam: Normal Appearance - ENT ENT Exam: Normal Exam - Neck Neck Exam: Normal Inspection - Respiratory Respiratory Exam: Clear to Auscultation - Bilaterally - Cardiovascular Cardiovascular Exam: RRR - GI/Abdominal GI/Abdominal Exam: Normal Bowel Sounds, Non Distended, Soft Additional GI/Abdominal Exam Details: Minimal tenderness in the upper epigastrium much better than before. No tenderness in the lower abdomen. - Rectal Rectal Exam: Deferred - External Exam: Deferred - Extremities Extremities Exam: Normal Inspection - Back Back Exam: Normal Inspection - Neurological Neurological Exam: Alert, Oriented x 3, CN II-XII Intact, No Facial Droop, Moves All Extremities Equally - Psychiatric Psychiatric Exam: Normal Affect - Integumentary Integumentary Exam: Normal Color Assessment and Plan - Patient Problems (1) GI bleed Current Visit: Yes Status: Acute Priority: High Diagnosis Date: 04/27/17 Comment: Colonoscopy that she had yesterday showed colitis. I spoke with the strainer tender Dr. Lujan who suggested methylprednisolone 2 doses and antibiotics. He also suggested follow-up with Dr. Dahl as an outpatient if she can make it to the appointment. Regarding the antibiotics we started her on Flagyl and the Zithromax. The reason she is allergic to Levaquin and she is allergic to penicillin. Although initially she didn't say it but I asked about her bowel movement again and she said she's been having diarrhea for a long time on and off. While initially when I talked to her she said it was abdominal cramps and vomiting that she's been having and she did not mention diarrhea. I think we'll keep him another day and aim to discharge her tomorrow. Qualifiers: GI bleed type/associated pathology: unspecified gastrointestinal hemorrhage type Qualifier Code(s): (K92.2) Gastrointestinal hemorrhage, unspecified (2) Paroxysmal a-fib Current Visit: Yes Status: Acute Comment: Continue propafenone. Continue holding Coumadin. Probably will hold it for 5 days. (3) Hypertension Current Visit: No Status: Acute Comment: Her blood pressure is coming up will restart her medications. (4) Nausea and vomiting Current Visit: Yes Status: Acute Comment: This is resolved (5) Leukocytosis Current Visit: Yes Status: Acute Comment: Still elevated I think likely secondary to the colitis. We did send blood culture and stool culture. Qualifiers: Leukocytosis type: unspecified Qualifier Code(s): (D72.829) Elevated white blood cell count, unspecified
[2017-04-29] MEDS: CEPHALEXIN 500 MG CAPSULE PO SCH ×2 (08:03→21:12)
[2017-04-29] MEDS: PROPAFENONE 150 MG TABLET PO SCH ×2 (08:03→21:13)
[2017-04-29] MEDS: OMEPRAZOLE 40 MG CAPSULE PO SCH ×2 (08:03→21:13)
[2017-04-29] MEDS: LISINOPRIL 10 MG TABLET PO SCH (08:04)
[2017-04-29] MEDS: HYDROCHLOROTHIAZIDE 12.5 MG CAPSULE PO SCH (08:09)
--- NOTE | 2017-04-29 09:06 | PDOC(PROG) ---
Date and Time of Service: 04/29/2017 9 AM Interval History: Patient reports she is feeling much better. Had minimal stool throughout the night. She did get 2 doses of steroids. She was started on Flagyl. Stool cultures pending. C. difficile negative. Rested well last night. Abdominal cramping decreased. No specific complaints. Objective : Data - Labs CBC and BMP: 04/29/17 04:33 04/29/17 04:33 Labs - Last 24 Hours: Laboratory Results 04/28/17 04/28/17 04/28/17 Range/Units 09:16 12:00 12:04 WBC (4.8-10.8) 10^3/uL RBC (4.20-5.40) 10^6/uL Hgb 12.2 (12.0-16.0) g/dL Hct 35.3 L (37.0-47.0) % MCV (81-99) FL MCH (27-31) PG MCHC (33-37) g/dL RDW Std Deviation (39-50) fL RDW Coeff of Eder (11.5-14.5) % Plt Count (140-350) 10*3/uL MPV (7.4-12.2) FL Immature Gran % (Auto) (0-5) % Neut % (Auto) (50-80) % Lymph % (Auto) (10-50) % [place] % (Auto) (5-15) % Eos % (Auto) (0-8) % Baso % (Auto) (0-1) % Immature Gran # (Auto) 10*3/UL Neut # (Auto) 10*3/UL Lymph # (Auto) 10*3/uL [place] # (Auto) (0.3-0.8) 10*3/UL Eos # (Auto) 10*3/UL Baso # (Auto) 10*3/UL WBC Morphology Comment (NORM) Plt Morphology Comment (NORM) RBC Morph Comment (NORM) ESR (0-20) MM/HR Sodium (135-145) meq/L Potassium (3.8-5.2) meq/L Chloride (98-112) meq/L Carbon Dioxide (23-33) meq/L Anion Gap (5-20) BUN (7-22) mg/dL Creatinine (0.50-1.20) mg/dL Estimated GFR (>60 ml/min/1.73m(2)) BUN/Creatinine Ratio (6-20) Glucose (78-110) mg/dL Calculated Osmolality (267-292) mOsm/kg Lactic Acid 0.8 (0.70-2.10) MMOL/L Calcium (8.7-10.7) mg/dL Total Bilirubin (0.3-1.2) mg/dL AST (8-39) IU/L ALT (9-52) IU/L Alkaline Phosphatase (38-126) IU/L Total Protein (6.1-8.0) g/dL Albumin (3.5-4.8) g/dL Globulin (2.50-4.10) g/dL Albumin/Globulin Ratio (1.3-2.0) mg/g Stool Occult Blood Positive (NEGATIVE) 04/29/17 Range/Units 04:33 WBC 24.99 H (4.8-10.8) 10^3/uL RBC 3.42 L (4.20-5.40) 10^6/uL Hgb 11.2 L (12.0-16.0) g/dL Hct 32.4 L (37.0-47.0) % MCV 94.7 (81-99) FL MCH 32.7 H (27-31) PG MCHC 34.6 (33-37) g/dL RDW Std Deviation 49.8 (39-50) fL RDW Coeff of Eder 15.0 H (11.5-14.5) % Plt Count 208 (140-350) 10*3/uL MPV 10.9 (7.4-12.2) FL Immature Gran % (Auto) 0.3 (0-5) % Neut % (Auto) 88.0 H (50-80) % Lymph % (Auto) 6.9 L (10-50) % [place] % (Auto) 4.7 L (5-15) % Eos % (Auto) 0 (0-8) % Baso % (Auto) 0.1 (0-1) % Immature Gran # (Auto) 0.07 10*3/UL Neut # (Auto) 21.99 10*3/UL Lymph # (Auto) 1.72 10*3/uL [place] # (Auto) 1.18 H (0.3-0.8) 10*3/UL Eos # (Auto) 0 10*3/UL Baso # (Auto) 0.03 10*3/UL WBC Morphology Comment Normal morphology (NORM) Plt Morphology Comment Normal morphology (NORM) RBC Morph Comment Normal morphology (NORM) ESR 15 (0-20) MM/HR Sodium 133 L (135-145) meq/L Potassium 4.0 (3.8-5.2) meq/L Chloride 103 (98-112) meq/L Carbon Dioxide 24 (23-33) meq/L Anion Gap 6 (5-20) BUN 12 (7-22) mg/dL Creatinine 0.7 (0.50-1.20) mg/dL Estimated GFR (>60 ml/min/1.73m(2)) BUN/Creatinine Ratio 17.14 (6-20) Glucose 123 H (78-110) mg/dL Calculated Osmolality 276.0 (267-292) mOsm/kg Lactic Acid (0.70-2.10) MMOL/L Calcium 8.2 L (8.7-10.7) mg/dL Total Bilirubin 1.0 (0.3-1.2) mg/dL AST 18 (8-39) IU/L ALT 30 (9-52) IU/L Alkaline Phosphatase 92 (38-126) IU/L Total Protein 5.5 L (6.1-8.0) g/dL Albumin 2.9 L (3.5-4.8) g/dL Globulin 2.6 (2.50-4.10) g/dL Albumin/Globulin Ratio 1.10 L (1.3-2.0) mg/g Stool Occult Blood (NEGATIVE) - Vital Signs Vital Signs and I&O: Vital Signs - Last Taken Temperature 98 F 04/29/17 07:43 Pulse Rate 60 04/29/17 07:43 Respiratory Rate 18 04/29/17 07:43 Blood Pressure 147/75 04/29/17 07:43 Pulse Ox 95 04/29/17 07:43 Intake and Output (24hr x 4 totals) 04/27/17 04/28/17 04/29/17 04/30/17 05:59 05:59 05:59 05:59 Intake Total 356 4363 240 Output Total 50 825 50 Balance 306 3538 190 Objective : Exam - General General Appearance: No Acute Distress, Cooperative - GI/Abdominal GI/Abdominal Exam: Normal Bowel Sounds, Non Distended, Soft Assessment and Plan - Patient Problems (1) GI bleed Current Visit: Yes Status: Acute Priority: High Diagnosis Date: 04/27/17 Comment: Colitis. Management per Dr. Moura. He has discussed her care with the gastroenterologists. Please call if I can be of further help. Qualifiers: GI bleed type/associated pathology: unspecified gastrointestinal hemorrhage type Qualifier Code(s): (K92.2) Gastrointestinal hemorrhage, unspecified
[2017-04-29] MEDS ORDERED: diphenhydrAMINE 50 MG/1 ML VIAL ONE (17:05)
[2017-04-29] MEDS ORDERED: diphenhydrAMINE 50 MG/1 ML VIAL IVP PRN (17:14)
[2017-04-29] MEDS: NORMAL SALINE 10 ML SYRINGE FLUSH IVP PRN ×2 (21:17→23:27)
[2017-04-29] MEDS ORDERED: METRONIDAZOLE 500 MG IV ONE (23:20)
[2017-04-30 00:16] VITALS: RESP 18
[2017-04-30 05:10] LABS: Hematocrit [HCT] 28.9 % (37.0-47.0); Hemoglobin [HGB] 9.9 g/dL (12.0-16.0); MEAN CORPUSCULAR HEMOGLOBIN 32.6 PG (27-31); MEAN CORPUSCULAR HGB CONC 34.3 g/dL (33-37); MEAN CORPUSCULAR VOLUME 95.1 FL (81-99); MEAN PLATELET VOLUME 11.9 FL (7.4-12.2); RED BLOOD COUNT 3.04 10^6/uL (4.20-5.40)
[2017-04-30 05:19] LABS: BUN/CREATININE RATIO 15.71 (6-20)
[2017-04-30 05:46] LABS: PLATELET MORPHOLOGY COMMENT NORMAL MORPHOLOGY (NORM); RBC MORPHOLOGY COMMENT NORMAL MORPHOLOGY (NORM); WBC MORPHOLOGY COMMENT NORMAL MORPHOLOGY (NORM)
[2017-04-30 05:47] LABS: BAND NEUTROPHILS % 12 % (0-10); BASOPHILS % (MANUAL) 0 % (0-1); EOSINOPHILS % (MANUAL) 0 % (0-8); MONOCYTES % (MANUAL) 3 % (0-12); NEUTROPHILS % (MANUAL) 72 % (50-80)
[2017-04-30] MEDS: HYDROCHLOROTHIAZIDE 12.5 MG CAPSULE PO SCH (07:27)
[2017-04-30] MEDS: metroNIDAZOLE 500mg (Premix) 500 MG in Premix 1 BAG IV SCH (07:28)
[2017-04-30] MEDS: PROPAFENONE 150 MG TABLET PO SCH (09:19)
[2017-04-30] MEDS: LISINOPRIL 10 MG TABLET PO SCH (09:19)
[2017-04-30] MEDS: CEPHALEXIN 500 MG CAPSULE PO SCH (09:19)
[2017-04-30] MEDS: OMEPRAZOLE 40 MG CAPSULE PO SCH (09:20)
[2017-04-30 11:29] VITALS: TEMP 97.4
[2017-04-30] MEDS ORDERED: ENOXAPARIN SODIUM 100 MG/1 ML SYRINGE SUBCUT ONE (13:23)
--- NOTE | 2017-04-30 13:23 | DCSUMMARY ---
Hospitalization Summary Admit Date: 04/27/17 Discharge Date: 04/30/17 Primary Diagnosis:: colitis, question ulcerative versus Crohn's Hospital Course: This very pleasant 76-year-old female came in with nausea, vomiting, and diarrhea. She had several episodes of diarrhea and was admitted for further evaluation. She had an EGD and colonoscopy and was found to have pancolitis. Surgery felt it was consistent with ulcerative colitis, but pathology is pending at this time. The patient had blood counts drifted down to a hemoglobin 9.9, but blood pressures, heart rate, and hemodynamics were otherwise preserved. The patient wanted to go home today, reported less diarrhea, no blood in the stool, and things seem to improve with Flagyl. At this time, I will place the patient on both Flagyl and prednisone on discharge and have the patient follow with her primary care provider in [place], Dr. Quintana. His non destructive evaluation technician can be reached at [phone], and I spoke to his call partner, Dr. Chanel Soto and she stated that she liked the patient on Lovenox for her atrial fibrillation which we will be glad to do. We will prescribe her a week of medications and have Dr. Abdi adjust further upon arrival in [place]. In the meantime the patient will hold off on Coumadin. I told the patient that if she should have any further nausea, vomiting, continued diarrhea or worsened diarrhea, blood in the stool, she should immediately visit the emergency room. Today, no complaints of chest pain, shortness of breath, nausea or vomiting, or blood in the diarrhea. Diarrhea has significantly reduced. Assessment and Plan: 1. As per discharge assessments noted 2. Disposition: Patient is discharged home. 3. Condition on discharge, stable and improved. 4. Diet: regular diet 5. Activities: resume normal activities 6. Follow-Up: 1. Dr. Quintana as soon as possible and this next week. 2. 7. Medications at the Time of Discharge: Home Medications Medication Instructions Recorded Confirmed Type Docusate Sodium [Colace] 1 cap PO BID 09/09/12 04/27/17 History Lisinopril/Hydrochlorothiazide 1 tab PO DAILY #90 tab 12/17/14 04/27/17 Clinic [Lisinopril-Hctz 10-12.5 mg Tab] Omeprazole 1 cap PO BID #180 cap 03/21/15 04/27/17 Clinic Warfarin Sodium 1 tab PO DAILY #0 tab 04/11/15 04/27/17 History Tamsulosin HCl [Flomax] 1 cap PO QHS #30 cap 04/30/15 04/27/17 History l Gasseri/B Bifidum/B Longum 1 each PO QHS #30 cap 04/30/15 04/27/17 History [[facility] Capsule] Cholecalciferol (Vitamin D3) 1 cap PO DAILY 04/28/17 04/28/17 History [Vitamin D3] Propafenone HCl 225 mg PO BID 04/28/17 04/28/17 History Enoxaparin Inj [Lovenox Inj] 100 mg SQ Q12H #14 ml 04/30/17 Rx Prednisone 20 mg PO DAILY #14 tab 04/30/17 Rx metroNIDAZOLE Tab [Flagyl Tab] 500 mg PO Q8H #42 tab 04/30/17 Rx 8. Time, care, counseling and coordination of care for this discharge is greater than 30 minutes. Exam - Vitals Vital Signs: Vital Signs Temperature 97.4 F Temperature Source Temporal Artery Scan Pulse Rate [Pulse Oximeter] 54 Pulse Rate [Apical] 59 Pulse Rate 48 Respiratory Rate 18 Blood Pressure [Right Arm] 157/57 Blood Pressure 137/57 Pulse Ox 95 Oxygen Flow Rate 1 Oxygen Flow Rate 2 Oxygen Delivery Method Room Air Height 5 ft 3 in Weight 227 lb - General General Appearance: POSITIVE: No Acute Distress, Cooperative - Eye Eye Exam: POSITIVE: No Scleral Icterus - Respiratory Respiratory Exam: POSITIVE: Clear to Auscultation - Bilaterally, Breathing Non Labored - Cardiovascular Cardiovascular Exam: POSITIVE: RRR, No Murmur, No Clicks, No Gallops, No Rubs, No JVD - GI/Abdominal GI/Abdominal Exam: POSITIVE: Normal Bowel Sounds, Non Tender, Non Distended, Soft - Extremities Extremities Exam: POSITIVE: No Clubbing Present, No Edema Present, No Cyanosis Present - Neurological Neurological Exam: POSITIVE: Alert, Oriented x 3, No Facial Droop, Speech Intact / Clear, Moves All Extremities Equally
[2017-04-30] MEDS ORDERED: ENOXAPARIN SODIUM 120 MG/0.8 ML SYRINGE SUBCUT ONE (13:39)
== END 2017-04-30 14:00 | disposition home or self-care (01) | DRG 392 ==
LOC: ER 19:45 → MED/SURG 22:36 → OPS 04-28 12:06 → MED/SURG 04-28 13:11
PROVIDERS: ADMIT Internal Medicine; ATTEND Internal Medicine